=== PATIENT | female | born 1965 | race African-American/Black ===

== ENCOUNTER 2016-09-21 14:13 | Emergency (ER) | payer OTHER ==
[~2016-09-21] VITALS: Ht 157.5 cm; Wt 89.0 kg
[2016-09-21] MEDS ORDERED: BACITRACIN ZINC OINT UDPKT TOP ONE (15:45)
[2016-09-21] MEDS ORDERED: KETOROLAC 60MG/2ML VIAL IM ONE (15:45)
[2016-09-21] MEDS ORDERED: LIDOCAINE HCL 1%/EPI 1:200,000 30 ML VIAL MC ONE (15:45)
[2016-09-21] MEDS ORDERED: TETANUS, DIPHTHERIA, PERTUSSIS VAC/PF 0.5ML (>7YR OLD) IM ONE (17:30)
[2016-09-21 17:50] VITALS: BP 136/90
== END 2016-09-21 18:15 | disposition home or self-care (01) ==
LOC: ER 14:13
DX: S91.012A Laceration without foreign body, left ankle, initial encounter (principal); W26.8XXA Contact with other sharp object(s), not elsewhere classified, initial encounter; Y93.89 Activity, other specified; Y92.89 Other specified places as the place of occurrence of the external cause; Z23 Encounter for immunization; I10 Essential (primary) hypertension; E03.9 Hypothyroidism, unspecified
CPT/HCPCS: 12032; 90471; 90715; 96372; 99284; J1885; Z7610

== ENCOUNTER 2020-06-29 00:03 | Emergency (ER) | payer MEDICAID, OTHER ==
[~2020-06-29] VITALS: Ht 157.5 cm; Wt 91.0 kg
[2020-06-29] MEDS ORDERED: IBUPROFEN 600MG TABLET PO ONE (00:45)
[2020-06-29] MEDS ORDERED: IBUP-2029 MT (01:15)
[2020-06-29 02:00] VITALS: BP 126/68
== END 2020-06-29 02:45 | disposition home or self-care (01) ==
LOC: ER 00:20
DX: S62.645A Nondisplaced fracture of proximal phalanx of left ring finger, initial encounter for closed fracture (principal); S90.31XA Contusion of right foot, initial encounter; I10 Essential (primary) hypertension; Z90.710 Acquired absence of both cervix and uterus; Z98.890 Other specified postprocedural states; W50.0XXA Accidental hit or strike by another person, initial encounter; Y93.89 Activity, other specified; Y92.89 Other specified places as the place of occurrence of the external cause
CPT/HCPCS: 29130; 73130; 73630; 99284; Z7610

== ENCOUNTER 2020-08-01 01:44 | Emergency (ER) | payer MEDICAID ==
[~2020-08-01] VITALS: Ht 154.9 cm; Wt 92.2 kg
[~2020-08-01 01:44] MED LIST: IBUP-2029 MT
[2020-08-01 02:08] VITALS: BP 133/94
[2020-08-01] MEDS ORDERED: ACETAMINOPHEN 325MG TABLET PO STA (04:04)
[2020-08-01] MEDS ORDERED: NEOM10DR11 RIGHT EAR (05:41)
== END 2020-08-01 05:51 | disposition home or self-care (01) ==
LOC: ER 01:44
DX: H66.91 Otitis media, unspecified, right ear (principal); H61.21 Impacted cerumen, right ear; H93.11 Tinnitus, right ear; I10 Essential (primary) hypertension; E03.9 Hypothyroidism, unspecified; Z98.890 Other specified postprocedural states
CPT/HCPCS: 99283

== ENCOUNTER 2020-12-01 14:43 | Emergency (ER) | payer MEDICAID ==
[~2020-12-01] VITALS: Ht 157.5 cm; Wt 88.0 kg
[~2020-12-01 14:43] MED LIST changes: +NEOM10DR11 RIGHT EAR
[2020-12-01] MEDS ORDERED: P50 MT (18:15)
[2020-12-01] MEDS ORDERED: LORA10TA7 MT (18:16)
[2020-12-01] MEDS ORDERED: ERYT60GE9 TP (18:17)
[2020-12-01 18:47] VITALS: BP 142/75
== END 2020-12-01 18:48 | disposition home or self-care (01) ==
LOC: ER 14:43
DX: H10.13 Acute atopic conjunctivitis, bilateral (principal); I10 Essential (primary) hypertension; Z98.890 Other specified postprocedural states; E03.9 Hypothyroidism, unspecified; Z79.899 Other long term (current) drug therapy
CPT/HCPCS: 99282